=== PATIENT | female | born 1980 | race African-American/Black ===

== ENCOUNTER 2019-09-28 14:35 | Inpatient (IN) | payer OTHER ==
[~2019-09-28] VITALS: Ht 160 cm; Wt 73.9 kg
[2019-09-28] MEDS ORDERED: RINGERS SOLUTION,LACTATED 1,000 ML IV ONE (15:18)
[2019-09-28] MEDS ORDERED: RINGERS SOLUTION,LACTATED 1,000 ML IV PRN (16:52)
[2019-09-28] MEDS ORDERED: OXYTOCIN 30 UNITS/LACT RINGERS 500 ML IV ONE (16:52)
[2019-09-28] MEDS ORDERED: TERBUTALINE SULFATE 1 MG/ML VIAL SQ PRN (17:00)
[2019-09-28] MEDS ORDERED: FentaNYL CITRATE-PF 100 MCG/2 ML VIAL IVP PRN (17:00)
[2019-09-28] MEDS ORDERED: METOCLOPRAMIDE HCL 5 MG/ML 2 ML VIAL IVP PRN (17:00)
[2019-09-28] MEDS ORDERED: METHYLERGONOVINE MALEATE 0.2 MG/ML VIAL IM PRN (17:00)
[2019-09-28] MEDS ORDERED: CITRIC ACID/SODIUM CITRATE 30 ML SOLUTION UDCUP PO PRN (17:00)
[2019-09-28 17:26] LABS: BASOPHILS % (AUTO) 0.5 % (0.0-2.0); EOSINOPHILS % (AUTO) 0.7 % (1.0-6.0); HEMATOCRIT 34.2 % (36-46); HEMOGLOBIN 11.2 g/dL (12.0-16.0); LYMPHOCYTES # (AUTO) 1.1 K/uL (1.0-4.8); LYMPHOCYTES % (AUTO) 25.6 % (22.0-44.0); MEAN CORPUSCULAR HEMOGLOBIN 28.7 pg (26.0-34.0); MEAN CORPUSCULAR HGB CONC 32.6 G/dL (31.0-37.0); MEAN CORPUSCULAR VOLUME 88 fL (80-100); MONOCYTES # (AUTO) 0.4 K/uL (0.1-1.0); MONOCYTES % (AUTO) 8.4 % (2.0-9.0); NEUTROPHILS # (AUTO) 2.9 K/uL (1.8-7.7); NEUTROPHILS % (AUTO) 64.8 % (40.0-70.0); PLATELET COUNT (AUTO)-OB 178 K/uL (150-450); RED BLOOD CELL COUNT(AUTO) 3.89 MIL/uL (4.00-5.20); RED CELL DISTRIBUTION WIDTH 14.5 % (11.5-14.5)
[2019-09-28 17:30] VITALS: BP 122/78
[2019-09-28] MEDS: RINGERS SOLUTION,LACTATED 1,000 ML IV SCH (18:24)
[2019-09-28] MEDS ORDERED: MISOPROSTOL 25 MCG TABLET VG SCH (19:15)
[2019-09-28] MEDS ORDERED: OXYGEN THERAPY IH SCH (20:00)
[2019-09-28] MEDS ORDERED: ZIDOVUDINE IV ONE ×4 (21:00)
[2019-09-28] MEDS ORDERED: WATER IV SCH (21:00)
[2019-09-28] MEDS ORDERED: ZIDOVUDINE IV SCH (21:00)
[2019-09-28] MEDS ORDERED: WATER IV ONE ×4 (21:00)
[2019-09-28] MEDS ORDERED: DEXTROSE 5% IV ONE ×4 (21:00)
[2019-09-28] MEDS ORDERED: DEXTROSE 5% IV SCH (21:00)
[2019-09-29] MEDS ORDERED: OXYTOCIN 30 UNITS/LACT RINGERS 500 ML IV PRN (00:30)
[2019-09-29] MEDS ORDERED: LIDOCAINE/PF 1% 30 ML VIAL INJ PRN (00:45)
[2019-09-29] MEDS: RINGERS SOLUTION,LACTATED 1,000 ML IV SCH ×2 (01:05→06:36)
[2019-09-29] MEDS ORDERED: ROPIVACAINE HCL/PF 0.2% 100 ML ED ONE (06:10)
[2019-09-29] MEDS ORDERED: NALBUPHINE HCL 10 MG/ML VIAL IVP PRN (06:45)
[2019-09-29] MEDS ORDERED: ONDANSETRON HCL 4 MG/2 ML VIAL IVP PRN (06:45)
[2019-09-29] MEDS ORDERED: DiphenhydrAMINE HCL 50 MG/ML VIAL IVP PRN (06:45)
[2019-09-29] MEDS ORDERED: ROPIVACAINE HCL/PF 0.2% 100 ML ED PRN (06:45)
[2019-09-29] MEDS ORDERED: WATER IV SCH (09:00)
[2019-09-29] MEDS ORDERED: DEXTROSE 5% IV SCH (09:00)
[2019-09-29] MEDS ORDERED: ZIDOVUDINE IV SCH (09:00)
[2019-09-29] MEDS ORDERED: RINGERS SOLUTION,LACTATED 1,000 ML IV ONE (10:17)
[2019-09-29] MEDS ORDERED: MEASLES/MUMPS/RUBELLA VACCINE, LIVE 0.5 ML/VIAL SQ ONE (10:30)
[2019-09-29] MEDS ORDERED: BENZOCAINE 20%/MENTHOL 56 GM SPRAY CANISTER TP PRN (10:30)
[2019-09-29] MEDS ORDERED: OxyCODONE HCL/ACETAMINOPHEN 5-325 MG TABLET PO PRN ×2 (10:30)
[2019-09-29] MEDS ORDERED: GLYCERIN/WITCH HAZEL LEAF 40 PADS JAR TP PRN (10:30)
[2019-09-29] MEDS ORDERED: LANOLIN 7 GM OINTMENT TP PRN (10:30)
[2019-09-29] MEDS: IBUPROFEN 600 MG TABLET PO PRN ×2 (20:52→21:01)
[2019-09-29] MEDS ORDERED: MAGNESIUM HYDROXIDE SUSPENSION 30 ML UDCUP PO SCH (21:00)
[2019-09-30] MEDS ORDERED: PNEUMOCOCCAL VACCINE POLYVALENT 0.5 ML VIAL [PPSV23] IM ONE (10:30)
[2019-09-30] MEDS ORDERED: INFLUENZA VIRUS VACCINE QVS 2019-20 (3YR+)/PF 60 MCG/0.5 ML SYRINGE IM ONE (10:30)
[2019-09-30] MEDS ORDERED: IBUP-2070 PO (11:35)
[2019-10-01 19:11] LABS: HIV INTERPRETATION HIV-1 Positive; HIV-1 ANTIBODY(MULTISPOT) Positive (Negative); HIV-2 ANTIBODY(MULTISPOT) Negative (Negative)
== END 2019-09-30 15:35 | disposition home or self-care (01) | DRG 807 ==
LOC: OBSVTOIN 14:35 → 4S 14:35
PROVIDERS: ADMIT Obstetrics & Gynecology; ATTEND Obstetrics & Gynecology
PROC: 10E0XZZ Delivery of Products of Conception, External Approach (ICD-10-PCS; principal; 2019-09-29)
PROC: 0KQM0ZZ Repair Perineum Muscle, Open Approach (ICD-10-PCS; 2019-09-29)
PROC: 3E0R3BZ Introduction of Anesthetic Agent into Spinal Canal, Percutaneous Approach (ICD-10-PCS; 2019-09-29)
PROC: 00HU33Z Insertion of Infusion Device into Spinal Canal, Percutaneous Approach (ICD-10-PCS; 2019-09-29)
DX: O69.81X0 Labor and delivery complicated by cord around neck, without compression, not applicable or unspecified (principal); Z37.0 Single live birth; O70.1 Second degree perineal laceration during delivery; O76 Abnormality in fetal heart rate and rhythm complicating labor and delivery; Z3A.39 39 weeks gestation of pregnancy
CPT/HCPCS: 86701; 86702; 86850; 86900; 86901; 90686; 90732; J2590; J2795; J3485; J7060; J7120